=== PATIENT | female | born 1975 | race Caucasian/White ===

== ENCOUNTER → 2019-12-26 17:31 | Outpatient (CLI) | payer OTHER, SELFPAY ==
--- NOTE | ~2019-12-26 | MM_ITS ---
EXAMINATION: MM screening radha BI w reagan HISTORY: Screening mammogram TECHNIQUE: Craniocaudal and mediolateral oblique 3-D tomosynthesis images were obtained and synthetic 2-D images were generated. CAD analysis was submitted and interpreted. COMPARISON: 12/06/2018 bilateral diagnostic digital mammogram and complete bilateral breast ultrasound bilateral digital screening mammogram 02/11/2015 bilateral diagnostic digital mammogram and limited left breast ultrasound BREAST PARENCHYMAL COMPOSITION: The breasts are extremely dense, which lowers the sensitivity of mamm ography. FINDINGS: There is no evidence of suspicious mass, calcification, or architectural distortion to sugg est malignancy in either breast. There has been no suspicious interval change. IMPRESSION: 1. No mammographic evidence of malignancy. 2. Recommend routine screening mammography in one year. BI-RADS Category 1: Negative Reviewed, dictated and finalized at location A.
== END ==
PROVIDERS: Visit Provider Obstetrics & Gynecology Gynecology
DX: Z12.31 Encounter for screening mammogram for malignant neoplasm of breast (principal)
CPT/HCPCS: 77063; 77067

== ENCOUNTER → 2022-11-15 07:58 | Outpatient (CLI) | payer BC, SELFPAY ==
--- NOTE | ~2022-11-15 | MMUS_ITS ---
EXAMINATION: MM diagnostic radha BI w reagan, US breast BI complete HISTORY: Left breast lump palpated by physician at 5:00 TECHNIQUE: ML, MLO and CC 3-D tomosynthesis images of both breasts were performed and synthetic 2-D i mages were generated. CAD analysis was submitted and interpreted. High resolution complete bilateral breast ultrasound examination including all 4 quadrants and subareolar areas was performed. COMPARISON: December 26, 2019 bilateral screening mammogram 12/06/2018 bilateral diagnostic mammography and complete bilateral breast ultrasound examination 11/17/2017 bilateral screening mammogram BREAST PARENCHYMAL COMPOSITION: The breasts are extremely dense, which lowers the sensitivity of mamm ography. FINDINGS: MAMMOGRAPHIC FINDINGS: No suspicious mass, architectural distortion, malignant calcification, skin thickening or retraction of either breast is detected. ULTRASOUND: Right breast: Numerous right breast cysts are noted, the largest situated at 7:00 5 cm from the nippl e, measuring up to 1.4 cm. No suspicious right breast mass or shadowing is detected. Left breast: 1:00 2 cm from nipple: Parallel circumscribed sonolucency measuring 7 x 7.5 x 5.3 mm, without interna l vascularity, with through transmission posterior enhancement, consistent with simple cyst 2:00 5 cm from nipple: Approximately 6 x 9 mm hypoechoic solid lesion with irregular and angular paige ins, mild posterior shadowing; ultrasound-guided biopsy is recommended 3:00 1 cm from nipple: Mildly irregular incompletely circumscribed margins are noted for a hypoechoic lesion measuring approximately 7 x 6 x 6.5 mm. Ultrasound-guided biopsy is recommended. IMPRESSION: 1. There are 2 irregular hypoechoic solid lesions of the left breast, at 2:00 5 cm from nipple and 3: 00 1 cm from nipple 2. Ultrasound-guided biopsy of left 2:00 and 3:00 lesions is recommended BI-RADS category 4, suspicious findings. Dr. Hilton telephoned the report and ultrasound-guided biopsy recommendation on November 15, 2022 at 09 40 hours to Stephanie Internship Coordinator Reviewed, dictated and finalized at location A. T LOADER IMPRESSION: 1. There are 2 irregular hypoechoic solid lesions of the left breast, at 2:00 5 cm from nipple and 3:00 1 cm from nipple 2. Ultrasound-guided biopsy of left 2:00 and 3:00 lesions is recommended BI-RADS category [address], [address] Hilton telephoned the report and ultrasound-guided biopsy recommendation on [facility] 2022 at 0940 hours to Lucinda Brown
== END ==
PROVIDERS: PCP Advanced Practice Midwife; Visit Provider Advanced Practice Midwife
DX: N63.20 Unspecified lump in the left breast, unspecified quadrant (principal); R92.8 Other abnormal and inconclusive findings on diagnostic imaging of breast
CPT/HCPCS: 76641; 77062; 77066; G0279